=== PATIENT | female | born 1955 | race African-American/Black ===

== ENCOUNTER 2020-08-01 08:31 | Outpatient (CLI) | payer MEDICARE | END 2020-08-01 08:32 | disposition home or self-care (01) | LOC: CSHMAMMO 08:31 | PROVIDERS: ATTEND Nurse Practitioner Family | DX: Z12.31 Encounter for screening mammogram for malignant neoplasm of breast (principal) | CPT/HCPCS: 77063; 77067 ==

== ENCOUNTER 2021-11-19 10:00 | Outpatient (CLI) | payer MEDICARE | END 2021-11-19 10:01 | disposition home or self-care (01) | LOC: CSHMAMMO 10:00 | PROVIDERS: ATTEND Nurse Practitioner Family | DX: Z12.31 Encounter for screening mammogram for malignant neoplasm of breast (principal); Z13.820 Encounter for screening for osteoporosis; Z85.038 Personal history of other malignant neoplasm of large intestine | CPT/HCPCS: 77063; 77067; 77080 ==